=== PATIENT | male | born 1985 | race Caucasian/White ===

== ENCOUNTER 2017-10-08 12:48 | Emergency (ER) | payer OTHER ==
--- NOTE | 2017-10-08 13:43 | ER Document Report ---
HPI - HPI Patient complains to provider of: toothache, swelling Onset: Last week Onset/Duration: Gradual Pain Level: 5 Context: 31 yo male with throbbing right dental abscess and swelling. No fever. Clindamycin left over for 3 days, not helping. Past Medical History - General Information source: Patient - Social History Smoking Status: Current Every Day Smoker Frequency of alcohol use: None Drug Abuse: None Lives with: Spouse/Significant other Family History: Reviewed & Not Pertinent - Medical History Medical History: Negative Surgical Hx: Negative Vertical Provider Document - CONSTITUTIONAL Agree With Documented VS: Yes Exam Limitations: No Limitations General Appearance: Mild Distress - HEENT Notes: dental abscess top right, no drainage, teeth decayed. with gingivitis - NECK Neck: Supple - NEURO Level of Consciousness: Awake - DERM Integumentary: No Rash Course - Vital Signs Vital signs: Temp Pulse Resp BP Pulse Ox 98.7 F 86 16 141/83 H 97 10/08/17 13:12 10/08/17 13:12 10/08/17 13:12 10/08/17 13:12 10/08/17 13:12 Discharge - Discharge Clinical Impression: dental pain and decay, Dental abscess Condition: Good Disposition: HOME, SELF-CARE Instructions: Clindamycin ([facility]), Dentist, Dental Infection or Abscess ([facility]), Toothache ([facility]) Additional Instructions: warm compress Prescriptions: Clindamycin HCl [Cleocin 150 mg Capsule] 300 mg PO QID #56 capsule Tramadol HCl [Ultram 50 mg Tablet] 50 mg PO ASDIR PRN #15 tablet PRN Reason: Forms: Return to Work
[2017-10-08] MEDS ORDERED: DEXAMETHASONE SOD PHOS INJ 10 MG/1 ML VIAL IM ONE (13:59)
[2017-10-08] MEDS ORDERED: CLINDAMYCIN HCL 150 MG CAPSULE PO ONE (14:01)
[2017-10-08 14:02] VITALS: BP 144/84
== END 2017-10-08 14:24 | disposition home or self-care (01) ==
LOC: ER 12:48
DX: K04.7 Periapical abscess without sinus (principal); K02.9 Dental caries, unspecified; K05.10 Chronic gingivitis, plaque induced; K08.89 Other specified disorders of teeth and supporting structures; F17.200 Nicotine dependence, unspecified, uncomplicated
CPT/HCPCS: 99282; 96372; J1100

== ENCOUNTER 2018-07-15 14:34 | Emergency (ER) | payer OTHER ==
[2018-07-15 14:45] VITALS: BP 151/88
[2018-07-15] MEDS ORDERED: LIDOCAINE 2% VISCOUS SOLN 20 ML UDCUP PO ONE (14:47)
[2018-07-15] MEDS ORDERED: KETOROLAC TROMETHAMINE 60 MG/2 ML SDV IM ONE (14:56)
--- NOTE | 2018-07-15 14:59 | ER Document Report ---
HPI - HPI Time Seen by Provider: 07/15/18 14:52 Pain Level: 4 Notes: Patient is a 32-year-old male who presents to the ED complaining of Rt upper dental pain #3 x1 day, with swelling that started yesterday as well. He has not noticed any obvious abscess or purulent discharge. + swelling. Patient states that he is still able to eat and drink, but does have a decreased p.o. intake due to the pain. He has tried some [id number] meds with minimal relief. No other concerns or complaints. Denies any headache, fever, head injury, neck pain, hoarseness, drooling, URI, sore throat, chest pain, palpitations, syncope, cough, shortness of breath, wheeze, dyspnea, abdominal pain, nausea/vomiting/diarrhea, urinary retention, dysuria, hematuria, or rash. - ROS Systems Reviewed and Negative: Yes All other systems reviewed and negative Past Medical History - Social History Smoking Status: Unknown if Ever Smoked Family History: Reviewed & Not Pertinent Renal/ Medical History: Denies: Hx Peritoneal Dialysis Vertical Provider Document - CONSTITUTIONAL Agree With Documented VS: Yes Notes: PHYSICAL EXAMINATION: GENERAL: Well-appearing, well-nourished and in no acute distress. HEAD: Atraumatic, normocephalic. EYES: Pupils equal round and reactive to light, extraocular movements intact, sclera anicteric, conjunctiva are normal. ENT: EAC clear b/l. TM's intact b/l without erythema, fluid, or perforation. Nares patent and without discharge. oropharynx clear without exudates. No tonsilar hypertrophy or erythema. Moist mucous membranes. No sinus tenderness. Uvula midline. No palatine shift. No tongue protrusion. No respiratory compromise. Mouth: Poor dentition. + mild decay and mild gingivitis. No obvious abscess or discharge noted. + mild rt upper facial swelling near #3. + tenderness to tooth #3. NECK: Normal range of motion, supple without lymphadenopathy. No rigidity/meningismus. LUNGS: Breath sounds clear to auscultation bilaterally and equal. No wheezes rales or rhonchi. HEART: Regular rate and rhythm without murmurs, rubs, gallops. NEUROLOGICAL: Cranial nerves grossly intact. Normal speech, normal gait. PSYCH: Normal mood, normal affect. SKIN: Warm, Dry, normal turgor, no rashes or lesions noted. - INFECTION CONTROL TRAVEL OUTSIDE OF THE [place] IN LAST 30 DAYS: No Course - Re-evaluation Re-evalutation: 07/15/18 14:58 Patient is an afebrile, well-hydrated, 32-year-old male who presents to the ED with dental pain, suspect nerve root etiology versus infection. Vitals are acceptable. PE is otherwise unremarkable. No I&D, labs, or imaging warranted at this time based on H&P. Viscous lidocaine dispensed today. I will send him home with a prescription for cleocin. Low suspicion for any meningitis, sepsis, peritonsillar/pharyngeal abscess, respiratory compromise, Deshaun's, temporal arteritis, or other emergent systemic condition at this time. Patient is aware this condition can change from initial presentation and he needs to monitor symptoms closely. Conservative measures otherwise for symptoms. Call to schedule an appointment with a dentist for further evaluation and management. Recheck with your PCM this week as well. Return to the ED with any worsening/concerning symptoms otherwise as reviewed in discharge. Patient is in agreement. - Vital Signs Vital signs: Temp Pulse Resp BP Pulse Ox 98.4 F 81 16 151/88 H 98 07/15/18 14:42 07/15/18 14:42 07/15/18 14:42 07/15/18 14:44 07/15/18 14:42 Discharge - Discharge Clinical Impression: Pain, dental Condition: Stable Disposition: HOME, SELF-CARE Instructions: Toothache ([facility]), Clindamycin ([facility]) Additional Instructions: [place] and floss twice daily Maintain fluid intake Take antibiotics as directed Mouthwash, salt water gargles, peroxide rinse as needed Tylenol/ibuprofen as needed Recheck with PCM this week Call today/tomorrow and schedule an appointment with your dentist for further evaluation Return to the ED with any worsening symptoms and/or development of fever, headache, facial swelling, swelling of lips/tongue/throat, trouble swallowing, drooling, hoarseness, neck pain/stiffness, chest pain, palpitations, syncope, shortness of breath, trouble breathing, abdominal pain, n/v/d, numbness/tingling, or other worsening symptoms that are concerning to you. Prescriptions: Clindamycin HCl [Cleocin 300 mg Capsule] 300 mg PO TID #30 capsule Forms: Elevated Blood Pressure Referrals: [facility] [Provider Group] - Follow up as needed
== END 2018-07-15 15:04 | disposition home or self-care (01) ==
LOC: ER 14:34
DX: K02.9 Dental caries, unspecified (principal); K05.10 Chronic gingivitis, plaque induced; K08.89 Other specified disorders of teeth and supporting structures
CPT/HCPCS: 99282; 96372; J1885; J3490

== ENCOUNTER → 2019-12-11 | Outpatient (CLI) | payer SELFPAY ==
--- NOTE | 2019-12-11 15:22 | ER RDC ASSESSMENT REPORT ---
Intake - In the Last 14 days Have you traveled outside [place]?: No Have you been in close contact with someone CONFIRMED: Yes Worked in Healthcare?: No - Symptoms Subjective Fever([place] feverish): No Chills: No Muscule Aches: No Runny Nose: No Sore Throat: No Cough (New or worsening chronic cough): No Shortness of breath: No Nausea or Vomiting: No Headache: No Abdominal Pain: No Diarrhea(3 or more loose stools in last 24 hours): No - Do you have any of the following Chronic lung disease: Asthma or emphysema or COPD: No Cystic Fibrosis: No Diabetes: No High Blood Pressure: No Cardiovascular Disease: No Chronic Kidney Disease: No Chronic Liver Disease: No Chronic blood disorder like Sickle Cell Disease: No Weak immune system due to disease or medication: No Neurologic condition that limits movement: No Developmental delay - Moderate to Severe: No Recent (within past 2 weeks) or current : No Morbid Obesity (>100 pounds over ideal weight): No - Objective Vital Signs: 6'1" 235 lb Temperature: 97.9 F Pulse Rate: 88 Respiratory Rate: 20 Blood Pressure: 129/72 O2 Sat by Pulse Oximetry: 96 Objective: Given above, testing performed: covid only Disposition: Home; Selfcare General - General Chief Complaint: Other Time Seen by Provider: 12/11/19 14:45 Mode of Arrival: Ambulatory Information source: Patient - HPI Notes: Patient presents to clinic for COVID-19 testing. They have no significant medical history. Patient is reporting exposure to daughter's friend who is COVID positive and would like to be tested. Patient reports brief episode of mild diarrhea and abdominal discomfort but states these have resolved at this time. Patient is currently asymptomatic. They deny any cough, shortness of breath, fever, chills, muscle aches, rhinorrhea, sore throat, nausea or vomiting, headache, abdominal pain or diarrhea. Patient has no acute medical concerns - Related Data Allergies/Adverse Reactions: No Known Allergies Allergy (Verified 07/15/18 14:38) Past Medical History - General Information source: Patient - Social History Smoking Status: Current Every Day Smoker Smoking Education Provided: Yes Family History: Reviewed & Not Pertinent - Past Medical History Cardiac Medical History: Reports: None Pulmonary Medical History: Reports: None EENT Medical History: Reports: None Neurological Medical History: Reports: None Endocrine Medical History: Reports: None Renal/ Medical History: Reports: None. Denies: Hx Peritoneal Dialysis Malignancy Medical History: Reports None GI Medical History: Reports: None Musculoskeletal Medical History: Reports None Skin Medical History: Reports None Psychiatric Medical History: Reports: None Traumatic Medical History: Reports: None Infectious Medical History: Reports: None Past Surgical History: Reports: None Physical Exam - General General appearance: Appears well, Alert In distress: None Notes: PHYSICAL EXAMINATION: GENERAL: Well-appearing and in no acute distress. HEAD: Atraumatic, normocephalic. EYES: sclera anicteric, conjunctiva are normal. ENT: nares patent. Moist mucous membranes. NECK: Normal range of motion, supple without lymphadenopathy LUNGS: CTAB and equal. No wheezes rales or rhonchi. HEART: Regular rate and rhythm without murmurs ABDOMEN: Soft, nontender, normal bowel sounds, no guarding. EXTREMITIES: Normal range of motion, no pitting edema. No cyanosis. NEUROLOGICAL: Cranial nerves grossly intact. Normal speech. PSYCH: Normal mood, normal affect. SKIN: Warm, Dry, normal turgor, no rashes or lesions noted Patient Education/Counseling Counseling/Education: Patient presents for COVID 19 testing after exposure to daughter's friend who is confirmed positive for COVID 19. Patient had some mild GI symptoms but they have resolved. Patient reports he is asymptomatic at this time. Patient does not have emergency worrying symptoms such as difficulty breathing, shortness of breath, chest pain, pressure, confusion or cyanosis. Patient appears suitable for discharge as vital signs are stable and patient is nontoxic in appearance. Good return precautions have been discussed with patient, patient verbalized understanding and is agreeable with discharge plan of care at this time. Guidance for worsening S/SX: As a person under investigation for Covid 19, the [place] department of Health and Human Services, division of public health advises you to adhere to the following guidance until your test results are reported to you. If your test result is positive, you will receive additional information from your provider and your local health department at that time. Remain at home until you are cleared by the health provider or public health authorities. Keep a log of visitors to your home, notify any visitors to your home of your isolation status. If you plan to move to a new address or leave the county, notify the local health department in your County. Call your doctor or seek care if you have an urgent medical need. Before seeking medical care, call ahead to get instructions from the provider before arriving at the medical office clinic or hospital. Notify them that you are being tested for the virus that causes Covid 19 so that arrangements can be made, as necessary, to prevent transmission to others in the healthcare setting. Next, notify the local health department in your county. If a medical emergency arises and you need to call 911, inform the first responders that you are being tested for the virus that causes Covid 19. Next, notify the local health department in your [facility]. RDC Discharge - Discharge Clinical Impression: Encounter for screening laboratory testing for COVID-19 virus in asymptomatic patient Condition: Good Disposition: Home; Selfcare
[2019-12-11 15:23] VITALS: BP 129/72
== END ==
LOC: RDC 14:21
PROVIDERS: ATTEND Registered Nurse
DX: Z20.828 Contact with and (suspected) exposure to other viral communicable diseases (principal)
CPT/HCPCS: 87635; C9803

== ENCOUNTER 2020-02-23 06:13 | Emergency (ER) | payer SELFPAY ==
[2020-02-23] MEDS ORDERED: KETOROLAC TROMETHAMINE INJ/PF 30 MG/1 ML SDV IV ONE (06:36)
[2020-02-23 06:48] LABS: ABSOLUTE EOSINOPHILS # (AUTO) 0.3 10^3/uL (0.0-0.6); ABSOLUTE LYMPHOCYTES (AUTO) 1.2 10^3/uL (0.5-4.7); ABSOLUTE MONOCYTES (AUTO) 0.9 10^3/uL (0.1-1.4); ABSOLUTE NEUT (AUTO) 7.7 10^3/uL (1.7-8.2); BASOPHILS % (AUTO) 0.3 % (0-2); EOSINOPHILS % (AUTO) 3.3 % (0-6); HEMATOCRIT 41.8 % (37.9-51.0); HEMOGLOBIN 14.8 g/dL (13.5-17.0); LYMPHOCYTES % (AUTO) 11.5 % (13-45); MEAN CORPUSCULAR HEMOGLOBIN 30.7 pg (27.0-33.4); MEAN CORPUSCULAR HGB CONC 35.4 g/dL (32.0-36.0); MEAN CORPUSCULAR VOLUME 87 fl (80-97); MONOCYTES % (AUTO) 8.5 % (3-13); PLATELET COUNT 285 10^3/uL (150-450); RED BLOOD COUNT 4.82 10^6/uL (4.35-5.55); RED CELL DISTRIBUTION WIDTH 13.6 % (11.5-14.0); SEGMENTED NEUTROPHILS % (AUTO) 76.4 % (42-78); TOTAL CELLS COUNTED % (AUTO) 100 %; WHITE BLOOD COUNT 10.1 10^3/uL (4.0-10.5)
[2020-02-23] MEDS ORDERED: HYDROMORPHONE HCL INJ/PF 2 MG/ML AMPULE IV ONE ×2 (07:03→08:40)
[2020-02-23] MEDS ORDERED: ONDANSETRON HCL INJ/PF 4 MG/2 ML SDV IV ONE ×2 (07:03→09:11)
[2020-02-23] MEDS ORDERED: NORMAL SALINE 1000 ML 1,000 ML IV ONE ×2 (07:04→09:22)
[2020-02-23 07:07] LABS: ALBUMIN 4.7 g/dL (3.5-5.0); ALKALINE PHOSPHATASE 51 U/L (38-126); ANION GAP 8 (5-19); ASPARTATE AMINO TRANSFERASE 30 U/L (17-59); BILIRUBIN,DIRECT 0.3 mg/dL (0.0-0.4); BILIRUBIN,TOTAL 0.5 mg/dL (0.2-1.3); BLOOD UREA NITROGEN 9 mg/dL (7-20); CALCIUM 9.4 mg/dL (8.4-10.2); CARBON DIOXIDE 29 mmol/L (22-30); CHLORIDE 105 mmol/L (98-107); GLUCOSE 97 mg/dL (75-110); POTASSIUM 4.3 mmol/L (3.6-5.0); TOTAL PROTEIN 7.2 g/dL (6.3-8.2)
[2020-02-23] MEDS ORDERED: DIPHENHYDRAMINE HCL 50 MG/ML VIAL IV ONE (08:40)
[2020-02-23 08:46] LABS: APPEARANCE,URINE CLEAR; BILIRUBIN,URINE NEGATIVE (NEGATIVE); COLOR,URINE YELLOW; GLUCOSE, URINE NEGATIVE (NEGATIVE); KETONES,URINE NEGATIVE (NEGATIVE); LEUKOCYTE ESTERASE,URINE NEGATIVE (NEGATIVE); NITRITE,URINE NEGATIVE (NEGATIVE); PROTEIN,URINE 30 mg/dL (NEGATIVE); URINE SPECIFIC GRAVITY 1.012; UROBILINOGEN,URINE NEGATIVE mg/dL (<2.0)
--- NOTE | 2020-02-23 08:49 | RADIOLOGY REPORT (SQ) ---
CT ABDOMEN AND PELVIS WITHOUT INTRAVENOUS CONTRAST: 02/23/2020 7:46 AM CDT HISTORY: 34-year old with right-sided flank pain. COMPARISON: None available TECHNIQUE: Axial contiguous images were obtained from the lung bases to the proximal femurs without intravenous contrast administered. Sagittal and coronal reconstructions were also obtained and reviewed. This exam was performed according to our departmental dose-optimization program, which includes automated exposure control, adjustment of the mA and/or KV according to the patient's size and/or use of iterative reconstruction technique. FINDINGS: No focal consolidative airspace opacities are seen. No discrete pleural effusions are seen. Evaluation of the solid organs is limited by the lack of intravenous contrast. The visualized hepatic parenchyma is unremarkable. The gallbladder demonstrates no evidence of calcified gallstones. The spleen is within normal limits of size. The pancreas is unremarkable. The bilateral adrenal glands appear unremarkable. There is mild to moderate right hydroureteronephrosis, secondary to a 4 mm calculus at the mid to distal right ureter. There is mild stranding around the right kidney, and superimposed infection is not excluded. There are punctate bilateral renal calcifications present. These measure up to 5 mm bilaterally. No left ureteral calculi are seen. The urinary bladder is mildly distended, and appears grossly unremarkable. There is fat noted within the bilateral inguinal canals. The stomach is not well distended. The small bowel loops appear unremarkable. No pericolonic inflammatory stranding is seen. There are multiple diverticula seen within the sigmoid and descending colon, without evidence to suggest diverticulitis. The appendix appears unremarkable. There is no evidence of pneumoperitoneum or free fluid. The aorta and IVC appear normal in size. No significantly enlarged lymph nodes are seen in the abdomen or pelvis. Review of the bone show no evidence of any suspicious lytic or blastic lesions. IMPRESSION: There is mild to moderate right hydroureteronephrosis, secondary to a 4 mm calculus at the mid to distal right ureter. There is mild stranding around the right kidney, and superimposed infection is not excluded. There are punctate bilateral renal calcifications present.
[2020-02-23] MEDS ORDERED: TAMSULOSIN HCL 0.4 MG CAP.SR.24H PO ONE (09:54)
--- NOTE | 2020-02-23 10:20 | ER Document Report ---
Entered by ALBA HUMPHREYS SCRIBE 02/23/20 0659 Acting as scribe for:ANGLE MILLER MD ED GI/ - General Chief Complaint: Flank Pain Stated Complaint: RIGHT SIDE FLANK PAIN Mode of Arrival: Ambulatory Information source: Patient Notes: This 34 year old male patient with a history significant for kidney stones with surgical intervention presents to the ED today with complaints of sudden onset right flank pain with associated nausea/vomiting that started prior to arrival. Patient states that he went to bed fine last night, but woke up in severe, sharp, 5/5 pain. Pain does not radiate. He reports that his last bowel movement was normal this morning. TRAVEL OUTSIDE OF THE [place] IN LAST 30 DAYS: No - Related Data Allergies/Adverse Reactions: No Known Allergies Allergy (Verified 07/15/18 14:38) Past Medical History - General Information source: Patient, [facility] Records - Social History Smoking Status: Current Every Day Smoker Chew tobacco use (# tins/day): No Smoking Education Provided: No Frequency of alcohol use: None Drug Abuse: Marijuana Family History: Reviewed & Not Pertinent Patient has suicidal ideation: No Patient has homicidal ideation: No Renal/ Medical History: Reports: Hx Kidney Stones Past Surgical History: Reports: Hx Kidney (Renal Surgery) Review of Systems - Review of Systems Constitutional: No symptoms reported EENT: No symptoms reported Cardiovascular: No symptoms reported Respiratory: No symptoms reported Gastrointestinal: See HPI, Nausea, Vomiting, Last bowel movement - 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, normal Genitourinary: See HPI, Flank pain Male Genitourinary: No symptoms reported Musculoskeletal: No symptoms reported Skin: No symptoms reported Hematologic/Lymphatic: No symptoms reported Neurological/Psychological: No symptoms reported -: Yes All other systems reviewed and negative Physical Exam - Vital signs Vitals: Temp Pulse Resp BP Pulse Ox 98.1 F 82 24 H 147/51 H 100 02/23/20 06:17 02/23/20 06:17 02/23/20 06:17 02/23/20 06:17 02/23/20 06:17 - General General appearance: Alert In distress: Severe - secondary to pain - HEENT Head: Normocephalic, Atraumatic Eyes: Normal Pupils: PERRL - Respiratory Respiratory status: No respiratory distress Chest status: Nontender Breath sounds: Normal Chest palpation: Normal - Cardiovascular Rhythm: Regular Heart sounds: Normal auscultation, S1 appreciated, S2 appreciated Murmur: No Friction rub: No Gallop: None auscultated - Abdominal Inspection: Normal Distension: No distension Bowel sounds: Normal Tenderness: Nontender - Abdomen soft Organomegaly: No organomegaly - Back Back: CVA tenderness - Right CVA percussion tenderness - Extremities General upper extremity: Normal inspection General lower extremity: Normal inspection. No: Edema - Neurological Neuro grossly intact: Yes Orientation: AAOx4 [place] Coma Scale Eye Opening: Spontaneous [place] Coma Scale Verbal: Oriented Bro Coma Scale Motor: Obeys Commands Bro Coma Scale Total: 15 - Psychological Associated symptoms: Restlessness - Skin Skin Temperature: Warm Skin Moisture: Dry Skin Color: Normal Course - Re-evaluation Re-evalutation: 02/23/20 10:09 Patient resting comfortably received IV fluids and IV pain medication x2 for control of renal colic with passing a stone in the right ureter 4 mm size. - Vital Signs Vital signs: Temp Pulse Resp BP Pulse Ox 97.8 F 57 L 24 H 131/69 H 98 02/23/20 08:59 02/23/20 08:59 02/23/20 06:20 02/23/20 08:59 02/23/20 08:59 02/23/20 10:09 Vital signs stable respiratory rate 24 with a pulse of 57. - Laboratory Result Diagrams: 02/23/20 06:30 02/23/20 06:30 Laboratory results interpreted by me: 02/23/20 02/23/20 06:30 08:30 Lymph % (Auto) 11.5 L Urine Protein 30 H Urine Blood MODERATE H 02/23/20 10:09 Urine positive for blood and protein. 02/23/20 06:30 02/23/20 06:30 MCV 87 fl (80-97) 02/23/20 06:30 MCH 30.7 pg (27.0-33.4) 02/23/20 06:30 MCHC 35.4 g/dL (32.0-36.0) 02/23/20 06:30 RDW 13.6 % (11.5-14.0) 02/23/20 06:30 Seg Neutrophils % 76.4 % (42-78) 02/23/20 06:30 Chloride 105 mmol/L (98-107) 02/23/20 06:30 Carbon Dioxide 29 mmol/L (22-30) 02/23/20 06:30 Anion Gap 8 (5-19) 02/23/20 06:30 Est GFR ( Amer) > 60 (>60) 02/23/20 06:30 Glucose 97 mg/dL (75-110) 02/23/20 06:30 Calcium 9.4 mg/dL (8.4-10.2) 02/23/20 06:30 Total Bilirubin 0.5 mg/dL (0.2-1.3) 02/23/20 06:30 AST 30 U/L (17-59) 02/23/20 06:30 Alkaline Phosphatase 51 U/L (38-126) 02/23/20 06:30 Total Protein 7.2 g/dL (6.3-8.2) 02/23/20 06:30 Albumin 4.7 g/dL (3.5-5.0) 02/23/20 06:30 Lipase 112.8 U/L (23-300) 02/23/20 06:30 Urine Color YELLOW 02/23/20 08:30 Urine Appearance CLEAR 02/23/20 08:30 Urine pH 9.0 (5.0-9.0) 02/23/20 08:30 Ur Specific [place] 1.012 02/23/20 08:30 Urine Protein 30 mg/dL (NEGATIVE) H 02/23/20 08:30 Urine Glucose (UA) NEGATIVE mg/dL (NEGATIVE) 02/23/20 08:30 Urine Ketones NEGATIVE mg/dL (NEGATIVE) 02/23/20 08:30 Urine Blood MODERATE (NEGATIVE) H 02/23/20 08:30 Urine Nitrite NEGATIVE (NEGATIVE) 02/23/20 08:30 Ur Leukocyte Esterase NEGATIVE (NEGATIVE) 02/23/20 08:30 Urine WBC (Auto) 1 /HPF 02/23/20 08:30 Urine RBC (Auto) 98 /HPF 02/23/20 08:30 - Diagnostic Test Radiology reviewed: Image reviewed, Reports reviewed Radiology results interpreted by me: 02/23/20 09:18 Abdomen/Pelvis CT 02/23/20 07:05 IMPRESSION: There is mild to moderate right hydroureteronephrosis, secondary to a 4 mm calculus at the mid to distal right ureter. There is mild stranding around the right kidney, and superimposed infection is not excluded. There are punctate bilateral renal calcifications present. 02/23/20 10:10 4 mm calculus in the distal right ureter mild stranding of the right kidney. Discharge - Discharge Clinical Impression: Right distal ureteral calculus, Renal colic on right side Condition: Stable Disposition: HOME, SELF-CARE Instructions: Oral Narcotic Medication ([facility]), Abdominal Pain ([facility]) Additional Instructions: Kidney Stone You are passing or have passed a kidney stone. These stones are usually due to increased calcium or uric acid concentrations in your urine. Stones within the kidney itself are not painful. The pain occurs as the stone leaves the kidney to pass down the long tube, called the ureter, leading to the bladder. If the stone is small, it will usually pass by itself. Most patients can pass the stone at home. You will usually receive medications for pain, nausea or vomiting, and sometimes a medication to assist in passing the kidney stone. However, if the pain is very severe or if vomiting prevents you from taking oral pain medications, you may need to return for further treatment. Drink three or four quarts of fluids per day. You will be given pain medication (if needed) and urine strainers. Strain all your urine to see if the stone passes. If your doctor has asked you to bring the stone in for analysis, return with the stone once it has passed. Return if pain or vomiting become severe, if you develop a high fever, if you are unable to pass your urine, or if other unusual symptoms occur. You have a kidney stone that is passing on the right side and is in the right ureter closest to the bladder at this time. Once the stone goes to the bladder you should have no further problems with the stone. We will be placing you on medications to assist you in passing the stones and acid you take drink plenty of fluids. We also requested you follow-up with the urologist that we are referring you to. Prescriptions: Tamsulosin HCl [Flomax 0.4 mg Cap.sr] 0.4 mg PO DAILY #7 cap.sr.24h Ibuprofen [Ibu] 800 mg PO TID PRN 7 Days #21 tablet PRN Reason: prn pain/swelling/fever Oxycodone HCl/Acetaminophen [Percocet 5-325 mg Tablet] 1 - 2 tab PO Q6H PRN #20 tablet PRN Reason: severe pain Ondansetron [Zofran Odt 4 mg Tablet] 1 - 2 tab PO Q4H PRN #15 tab.rapdis PRN Reason: For Nausea/Vomiting Forms: Return to Work Referrals: JAMIL CORRIGAN MD [NO LOCAL MD] - Follow up tomorrow I personally performed the services described in the documentation, reviewed and edited the documentation which was dictated to the scribe in my presence, and it accurately records my words and actions.
[2020-02-23 10:32] VITALS: BP 118/71
== END 2020-02-23 10:37 | disposition home or self-care (01) ==
LOC: ER 06:13
DX: N13.2 Hydronephrosis with renal and ureteral calculous obstruction (principal); R31.9 Hematuria, unspecified; R10.9 Unspecified abdominal pain; R11.2 Nausea with vomiting, unspecified; F17.200 Nicotine dependence, unspecified, uncomplicated
CPT/HCPCS: 96376; 99285; 96361; 96374; 96375; 36415; 83690; 85025; 80053; 81001; 74176; J1200; J1885; J1170; J2405; J7030

== ENCOUNTER 2020-02-25 19:47 | Emergency (ER) | payer SELFPAY ==
[2020-02-25 20:04] VITALS: BP 143/92
[2020-02-25] MEDS ORDERED: CLINDAMYCIN HCL 150 MG CAPSULE PO ONE (20:37)
[2020-02-25] MEDS ORDERED: KETOROLAC TROMETHAMINE 60 MG/2 ML SDV IM ONE (20:37)
--- NOTE | 2020-02-25 20:38 | ER Document Report ---
HPI - HPI Time Seen by Provider: 02/25/20 20:24 Notes: 34-year-old male presents emergency room for left facial pain and tenderness that started 3 days ago after having dental pain. He noticed having facial swelling today. Has not tried any [id number] medications. Reports pain is worse with time, nothing makes better. Patient does smoke cigarettes. Eating and drinking soft foods without any issues. Patient does not have his insurance and unable to get into a dentist. Reports pain is 3 out of 5, throbbing achy. Denies fevers, chills, chest pain,palpitations, shortness of breath, dyspnea, nausea, vomiting, diarrhea, abdominal pain, hematuria,blurred vision, double vision, loss of vision, speech changes, LH, dizziness, syncope, headaches, wheezing, ST, URI, neck pain, weakness, bowel or bladder dysfunction, saddle anesthesia, numbness or tingling in bilateral upper or lower extremities equally, muscle paralysis, weakness in bilateral upper or lower extremities equally or rash. Denies IV drug use. MEDICATIONS: I agree with the patient medications as charted by the RN. ALLERGIES: I agree with the allergies as charted by the RN. PAST MEDICAL HISTORY/PAST SURGICAL HISTORY: Reviewed and agree as charted by RN. SOCIAL HISTORY: Reviewed and agree as charted by RN. FAMILY HISTORY: No significant familial comorbid conditions directly related to patient complaint EXAM: Reviewed vital signs as charted by RN. REVIEW OF SYSTEMS:reviewed vital signs by RN CONSTITUTIONAL : Denies fever, chills, or sweats. Denies recent illness. EENT: Reports dental pain. Denies eye, ear, throat, or mouth pain or symptoms. Denies nasal or sinus congestion or discharge. Denies throat, tongue, or mouth swelling or difficulty swallowing. CARDIOVASCULAR: Denies chest pain. Denies palpitations or racing or irregular heart beat. Denies ankle edema. RESPIRATORY: Denies cough, cold, or chest congestion. Denies shortness of breath, difficulty breathing, or wheezing. GASTROINTESTINAL: Denies abdominal pain or distention. Denies nausea, vomiting, or diarrhea. Denies blood in vomitus, stools, or per rectum. Denies black, tarry stools. Denies constipation. GENITOURINARY: Denies difficulty urinating, painful urination, burning, frequency, blood in urine, or discharge. MUSCULOSKELETAL: Denies back or neck pain or stiffness. Denies joint pain or swelling. SKIN: Denies rash, lesions or sores. HEMATOLOGIC : Denies easy bruising or bleeding. LYMPHATIC: Denies swollen, enlarged glands. NEUROLOGICAL: Denies confusion or altered mental status. Denies passing out or loss of consciousness. Denies dizziness or lightheadedness. Denies headache. Denies weakness or paralysis or loss of use of either side. Denies problems with gait or speech. Denies sensory loss, numbness, or tingling. Denies seizures. PSYCHIATRIC: Denies anxiety or stress. Denies depression, suicidal ideation, or homicidal ideation. ALL OTHER SYSTEMS REVIEWED AND NEGATIVE. Dictation was performed using [employer] voice recognition software PHYSICAL EXAMINATION: GENERAL: Well-appearing, well-nourished and in no acute distress. HEAD: Atraumatic, normocephalic. EYES: Pupils equal round and reactive to light, extraocular movements intact, sclera anicteric, conjunctiva are normal. ENT: Nares patent, oropharynx clear without exudates. Moist mucous membranes. TM with effusion bilaterally, no erythema. TMs intact. #19,20,21 gingiva with swelling, erythema and induration. No drainage or open wounds. No fluctuance. No facial swelling. Poor oral dentition, left lower jaw with moderatedental caries, no definite swelling or effusion. no trismus noted. Uvula is midline NECK: Normal range of motion, supple without lymphadenopathy LUNGS: Breath sounds clear to auscultation bilaterally and equal. No wheezes rales or rhonchi. HEART: Regular rate and rhythm without murmurs ABDOMEN: Soft, nontender, nondistended abdomen. No guarding, no rebound. No masses appreciated. Musculoskeletal: Normal range of motion, no pitting or edema. No cyanosis. NEUROLOGICAL: Cranial nerves grossly intact. Normal speech, normal gait. Normal sensory, motor exams PSYCH: Normal mood, normal affect. SKIN: Warm, Dry, normal turgor, no rashes or lesions noted. - REPRODUCTIVE Reproductive: DENIES: : Past Medical History - General Information source: Patient - Social History Smoking Status: Current Every Day Smoker Family History: Reviewed & Not Pertinent Renal/ Medical History: Reports: Hx Kidney Stones. Denies: Hx Peritoneal Dialysis Past Surgical History: Reports: Hx Kidney (Renal Surgery) Vertical Provider Document - CONSTITUTIONAL Agree With Documented VS: Yes Exam Limitations: No Limitations General Appearance: WD/WN - INFECTION CONTROL TRAVEL OUTSIDE OF THE [place] IN LAST 30 DAYS: No Course - Re-evaluation Re-evalutation: 02/25/20 20:36 Afebrile vital stable no distress. Nurses notes reviewed. Patient given 60 mg of Toradol IM and 300mg of clindamycin orally. Advised to take course of clindamycin every 6 hours as directed, avoid smoking, follow-up with a dentist for dental evaluation for various dental caries. Alternate between Tylenol and naproxen for his pain, warm compress to site 20 minutes on 20 minutes off several times a day. After performing a Medical Screening Examination, I estimate there is LOW risk for a DEEP SPACE INFECTION (e.g., ANGELINA'S ANGINA OR RETROPHARYNGEAL ABSCESS), MENINGITIS, INTRACRANIAL HEMORRHAGE, or AIRWAY COMPROMISE, thus I consider the discharge disposition reasonable. Also, there is no evidence or peritonitis, sepsis, or toxicity. I have reevaluated this patient multiple times and no significant life threatening changes are noted. The patient and I have discussed the diagnosis and risks, and we agree with discharging home with close follow-up with the understanding that symptoms and presentations can change. We also discussed returning to the Emergency Department immediately if new or worsening symptoms occur. We have discussed the symptoms which are most concerning (e.g., changing or worsening pain, trouble swallowing or breathing, neck stiffness or fever) that necessitate immediate return. - Vital Signs Vital signs: Temp Pulse Resp BP Pulse Ox 97.9 F 81 16 143/92 H 97 02/25/20 20:02 02/25/20 20:02 02/25/20 20:02 02/25/20 20:02 02/25/20 20:02 Discharge - Discharge Clinical Impression: Dental caries Condition: Stable Disposition: HOME, SELF-CARE Instructions: Toradol Injection ([facility]), Clindamycin ([facility]), Dentist, Toothache ([facility]) Additional Instructions: TOOTHACHE: Your pain is due to dental decay. The tooth must be repaired in order for you to feel better. You will, therefore, be referred to a dentist. We do not have dentists on the staff at [facility]. Severe swelling or drainage around a tooth usually means a dental abscess. This also requires evaluation and treatment by the dentist, but antibiotics may be prescribed while awaiting dental treatment. You should be rechecked immediately if you develop major swelling of the face, increasing pain, a lump in the jaw or gums, headache, difficulty swallowing, or fever. CLINDAMYCIN: You have been given a prescription for the antibiotic clindamycin. It is often prescribed for infections in the mouth, such as dental infections or abscesses, and for skin infections due to MRSA. It's important that you take all the medication, unless instructed otherwise by your physician. Failure to complete the entire course can result in relapse of your condition. Common side effects of antibiotics include nausea, intestinal cramping, or diarrhea. Women may develop vaginal yeast infections, and babies can get yeast (thrush) in the mouth following the use of antibiotics. Contact your physician if you develop significant side effects from this medication. Allergy to this antibiotic can result in hives, wheezing, faintness, or itching. If symptoms of allergy occur, stop the medication and call the doctor. FOLLOW-UP CARE: You have been referred for follow-up care to the dentists listed below. Call the dentists office for an appointment as you were instructed or within the next two days. If you experience worsening or a significant change in your symptoms, notify the physician immediately or return to the Emergency Department at any time for re-evaluation. [facility] [address], [place] Monday mornings, by appointment [facility] [address] [place] [address] [facility] [address] [facility] [address] [facility] [address] [email or web address] [address] [place] [address] Monday- 8:00am to 5:00 pm Will see patients from other [facility]. Charges based on income and family size and accepts Medicare, Medicaid, and Insurances Will pull molars [facility] [address] Hours of Operation 8:00 am - 4:30 pm weekdays The following dental offices accept Medicaid: [facility] Dr. Gan Dr. Yang Dr. Abarca Dr. Jimenez Simeon Lopez, Celestino, and Pieter oral surgery Dr. Garcia ([place]) Dr. Ashley ([place]) [facility] Drs. Vang and Buck ([place]) Dr. Damico ([place]) [facility] Dr. Rahman ([place]) Drs. Dumont and ([place]) Medicaid Care Line Prescriptions: Clindamycin HCl 300 mg PO Q6H #28 capsule Naproxen 500 mg PO BID #10 tablet Forms: Return to Work Referrals: RADHA BARTH MD [ACTIVE STAFF] - Follow up as needed
== END 2020-02-25 21:07 | disposition home or self-care (01) ==
LOC: ER 19:47
DX: K02.9 Dental caries, unspecified (principal); R51 Headache; K08.89 Other specified disorders of teeth and supporting structures; F17.210 Nicotine dependence, cigarettes, uncomplicated
CPT/HCPCS: 99284; 96372; J1885

== ENCOUNTER 2020-03-16 09:02 | Emergency (ER) | payer SELFPAY ==
[2020-03-16] MEDS ORDERED: KETOROLAC TROMETHAMINE INJ/PF 30 MG/1 ML SDV IV ONE (09:56)
[2020-03-16] MEDS ORDERED: DEXAMETHASONE SOD PHOS INJ 10 MG/1 ML VIAL IV ONE (09:56)
[2020-03-16] MEDS ORDERED: CLINDAMYCIN 600 MG/D5W RTU 600 MG/50 ML RTUPB IV ONE (09:56)
--- NOTE | 2020-03-16 09:57 | ER Document Report ---
ED General - General Chief Complaint: Toothache Stated Complaint: TOOTH PAIN, JAW PAIN Time Seen by Provider: 03/16/20 09:47 Primary Care Provider: [facility] [Provider Group] - Follow up in 1 week TRAVEL OUTSIDE OF THE [place] IN LAST 30 DAYS: No - HPI Notes: 34-year-old male to the emergency department with complaints of worsening tooth ache and worsening facial swelling to the left side of his face and now down onto the neck in the past week. He was seen approximately 1 week ago for tooth ache and started on clindamycin. He states he has been taking it 2-3 times a day. He states he has made an appointment with the dentist in [place] but the dentist has told him he cannot see him until the infection clears up. Denies any fevers or chills. He denies any drooling or voice change. He is concerned because now his neck is swelling. He is a smoker. - Related Data Allergies/Adverse Reactions: No Known Allergies Allergy (Verified 03/16/20 09:34) Past Medical History - General Information source: Patient - Social History Smoking Status: Current Every Day Smoker Chew tobacco use (# tins/day): No Frequency of alcohol use: None Drug Abuse: None Family History: Reviewed & Not Pertinent Patient has homicidal ideation: No Renal/ Medical History: Reports: Hx Kidney Stones. Denies: Hx Peritoneal Dialysis Past Surgical History: Reports: Hx Kidney (Renal Surgery) Review of Systems - Review of Systems Constitutional: denies: Chills, Fever EENT: Dental problem, Other - Worsening facial swelling Cardiovascular: denies: Chest pain, Palpitations, Dizziness, Lightheaded Respiratory: denies: Cough, Short of breath Gastrointestinal: denies: Abdominal pain, Diarrhea, Nausea, Vomiting Musculoskeletal: No symptoms reported Skin: No symptoms reported Hematologic/Lymphatic: No symptoms reported Neurological/Psychological: No symptoms reported -: Yes All other systems reviewed and negative Physical Exam - Vital signs Vitals: Temp Pulse Resp BP Pulse Ox 99.1 F 94 16 163/95 H 100 03/16/20 09:09 03/16/20 09:09 03/16/20 09:09 03/16/20 09:09 03/16/20 09:09 Interpretation: Normal - General General appearance: Appears well, Alert In distress: Mild Notes: Mild pain distress. Patient is holding the left side of his face - HEENT Head: Normocephalic, Other - There is significant lower left jaw swelling and the swelling continues unilaterally down the neck. There is no drooling. The jaw and the neck are very tender to palpation. The palate below the tongue does not appear to be edematous or indurated to suggest against Deshaun's angina. Airway is grossly patent. Severe dentition throughout. The posterior bottom left molar and premolar are decayed into the pulp of the tooth and down to the gumline. They are very tender to palpation as well. Eyes: Normal Pupils: PERRL Mouth/Lips: Caries. No: Angioedema Mucous membranes: Normal - Respiratory Respiratory status: No respiratory distress Chest status: Nontender Breath sounds: Normal. No: Rales, Rhonchi, Wheezing Chest palpation: Normal - Cardiovascular Rhythm: Regular Heart sounds: Normal auscultation Murmur: No - Abdominal Inspection: Normal Distension: No distension Bowel sounds: Normal Tenderness: Nontender. No: Tender, McBurney's point, Sneed's sign, Guarding, Rebound Organomegaly: No organomegaly - Back Back: Normal, Nontender - Neurological Neuro grossly intact: Yes Cognition: Normal Orientation: AAOx4 [place] Coma Scale Eye Opening: Spontaneous [place] Coma Scale Verbal: Oriented [place] Coma Scale Motor: Obeys Commands [place] Coma Scale Total: 15 Speech: Normal Cranial nerves: Normal Cerebellar coordination: Normal Motor strength normal: LUE, RUE, LLE, RLE Additional motor exam normals: Equal manager mba. No: Pronator drift Sensory: Normal - Psychological Associated symptoms: Normal affect, Normal mood - Skin Skin Temperature: Warm Skin Moisture: Dry Skin Color: Normal Course - Re-evaluation Re-evalutation: 03/16/20 Impression: Dental caries, dental pain, dental infection, cellulitis from dental infection. There is no identifiable drainable abscess on CT scan. There is no airway compromise. We will send the patient home with Augmentin since he states he just finished clindamycin. We will also have him follow-up with dentist. He is to return if he has worsening symptoms. Patient agrees with the plan. - Vital Signs Vital signs: Temp Pulse Resp BP Pulse Ox 99.1 F 80 18 140/80 H 98 03/16/20 12:30 03/16/20 12:30 03/16/20 12:30 03/16/20 12:30 03/16/20 12:30 - Laboratory Result Diagrams: 03/16/20 10:26 03/16/20 10:26 Laboratory results interpreted by me: 03/16/20 03/16/20 10:26 10:26 Lymph % (Auto) 7.0 L Seg Neutrophils % 82.1 H Potassium 3.5 L - Diagnostic Test Radiology reviewed: Image reviewed, Reports reviewed Discharge - Discharge Clinical Impression: Dental infection, Left facial swelling, Dental caries Cellulitis Qualifiers: Site of cellulitis: face Qualified Code(s): L03.211 - Cellulitis of face Condition: Stable Disposition: HOME, SELF-CARE Instructions: Toothache ([facility]) Additional Instructions: Follow-up with your dentist without fail in [place] in 1 week. Complete all antibiotics without fail. Return if worsening symptoms. Prescriptions: Amoxicillin/Potassium Clav [Augmentin 875-125 Tablet] 1 tab PO NOW #20 tablet Hydrocodone/Acetaminophen [[place] 5-325 mg Tablet] 1 tab PO Q6H #12 tablet Chlorhexidine Gluconate [Peridex] 15 ml MM QID #420 ml Forms: Return to Work Referrals: [facility] [Provider Group] - Follow up in 1 week
[2020-03-16 10:43] LABS: ABSOLUTE EOSINOPHILS # (AUTO) 0.1 10^3/uL (0.0-0.6); ABSOLUTE LYMPHOCYTES (AUTO) 0.6 10^3/uL (0.5-4.7); ABSOLUTE MONOCYTES (AUTO) 0.8 10^3/uL (0.1-1.4); ABSOLUTE NEUT (AUTO) 6.8 10^3/uL (1.7-8.2); BASOPHILS % (AUTO) 0.2 % (0-2); EOSINOPHILS % (AUTO) 0.8 % (0-6); HEMATOCRIT 39.3 % (37.9-51.0); HEMOGLOBIN 13.8 g/dL (13.5-17.0); MEAN CORPUSCULAR HEMOGLOBIN 30.6 pg (27.0-33.4); MEAN CORPUSCULAR HGB CONC 35.1 g/dL (32.0-36.0); MEAN CORPUSCULAR VOLUME 87 fl (80-97); MONOCYTES % (AUTO) 9.9 % (3-13); PLATELET COUNT 235 10^3/uL (150-450); RED BLOOD COUNT 4.51 10^6/uL (4.35-5.55); RED CELL DISTRIBUTION WIDTH 13.4 % (11.5-14.0); SEGMENTED NEUTROPHILS % (AUTO) 82.1 % (42-78); TOTAL CELLS COUNTED % (AUTO) 100 %; WHITE BLOOD COUNT 8.3 10^3/uL (4.0-10.5)
[2020-03-16 11:12] LABS: ANION GAP 10 (5-19); BLOOD UREA NITROGEN 10 mg/dL (7-20); CARBON DIOXIDE 28 mmol/L (22-30); CHLORIDE 101 mmol/L (98-107); GLUCOSE 83 mg/dL (75-110); POTASSIUM 3.5 mmol/L (3.6-5.0)
--- NOTE | 2020-03-16 11:47 | RADIOLOGY REPORT (SQ) ---
EXAM DESCRIPTION: CT SOFT TISSUE NECK WITH IMAGES COMPLETED DATE/TIME: 03/16/2020 11:36 am REASON FOR STUDY: unilateral jaw/neck swelling COMPARISON: None. TECHNIQUE: Post IV contrasted scanning from skull base through lung apices with review of bone, soft tissue and lung windows. Reconstructed coronal and sagittal MPR images reviewed. All images stored on PACS. All CT scanners at this facility use dose modulation, iterative reconstruction, and/or weight based d osing when appropriate to reduce radiation dose to as low as reasonably achievable (ALARA). [facility]: Dose Right [facility]: CareDose [facility]: Dose Right [facility]: Teradose 4D [facility]: Xobni CONTRAST TYPE AND DOSE: contrast/concentration: Isovue 350.00 mmol/ml; Total Contrast Delivered: 75. 0 ml; Total Saline Delivered: 54.9 ml RENAL FUNCTION: GFR > 60. RADIATION DOSE: CT Rad equipment meets quality standard of care and radiation dose reduction techniq ues were employed. CTDIvol: 17.5 mGy. DLP: 632 mGy-cm. . LIMITATIONS: None. FINDINGS: SKULL BASE: Intact. MAJOR SALIVARY GLANDS: No solid or cystic masses. No inflammatory changes. LYMPHADENOPATHY: No adenopathy. MUCOSAL MASSES OR ASYMMETRY: No mucosal masses or asymmetry. LARYNX/CORDS: No abnormal findings. VASCULAR STRUCTURES: The major vessels are patent. LUNG APICES: Clear. BONES: Intact. THYROID: Normal size. No masses. PARANASAL SINUSES: Clear. OTHER: Mild inflammatory changes in the subcutaneous tissues of the left mandible. IMPRESSION: Cellulitis. No abscess. TECHNICAL DOCUMENTATION: JOB ID: [id number] Quality ID # [id number]: Final reports with documentation of one or more dose reduction techniques (e.g., Au tomated exposure control, adjustment of the mA and/or kV according to patient size, use of iterative reconstruction technique) 2010 The Society- All Rights Reserved Reading location - IP/workstation name: [email or web address]
[2020-03-16 12:44] VITALS: BP 140/80
== END 2020-03-16 12:30 | disposition home or self-care (01) ==
LOC: ER 09:02
DX: K04.7 Periapical abscess without sinus (principal); L03.211 Cellulitis of face; K02.9 Dental caries, unspecified; F17.200 Nicotine dependence, unspecified, uncomplicated
CPT/HCPCS: 99285; 96375; 96365; 36415; 85025; 80048; 70491; J1885; J1100